=== PATIENT | female | born 1970 | race Caucasian/White ===

== ENCOUNTER → 2024-02-01 | Outpatient (CLI) | payer OTHER | LOC: M WHC 13:04 | PROVIDERS: ATTEND Registered Nurse | DX: Z12.31 Encounter for screening mammogram for malignant neoplasm of breast (principal); Z80.3 Family history of malignant neoplasm of breast; Z80.0 Family history of malignant neoplasm of digestive organs; Z80.49 Family history of malignant neoplasm of other genital organs ==

== ENCOUNTER → 2024-03-22 | Outpatient (CLI) | payer OTHER | LOC: M RAD 10:24 | PROVIDERS: ATTEND Registered Nurse | DX: M79.661 Pain in right lower leg (principal); M79.662 Pain in left lower leg ==

== ENCOUNTER 2024-04-30 06:49 | Day surgery (SDC) | payer OTHER ==
[~2024-04-30] VITALS: Ht 165.1 cm; Wt 104.7 kg
[~2024-04-30 06:49] MED LIST: AMIT10TA7 PO; HYDR-3490 PO; LOSA25TA13 PO; NS 1,000 ML IV ONE; OMEP-173 PO; SEMA0.5P
[2024-04-30] MEDS ORDERED: propofoL 200 MG/20 ML VIAL As Ordered ONE (07:53)
[2024-04-30 08:26] VITALS: TEMP 99
[2024-04-30 08:45] VITALS: BP 147/74; O2SAT 96
== END 2024-04-30 08:59 | disposition home or self-care (01) ==
LOC: M SDC 06:49
PROVIDERS: ATTEND Internal Medicine Gastroenterology
DX: D12.5 Benign neoplasm of sigmoid colon (principal); Z88.0 Allergy status to penicillin; Z88.1 Allergy status to other antibiotic agents

== ENCOUNTER → 2024-05-01 | Outpatient (REF) ==
[~2024-05-01] MED LIST changes: -NS 1,000 ML IV ONE
== END ==
LOC: M LAB 15:05
PROVIDERS: ATTEND Family Medicine
DX: Z00.00 Encounter for general adult medical examination without abnormal findings (principal)

== ENCOUNTER → 2024-06-07 | Outpatient (CLI) | payer OTHER | LOC: M RAD 14:16 | PROVIDERS: ATTEND Registered Nurse | DX: M79.662 Pain in left lower leg (principal) ==

== ENCOUNTER → 2025-02-11 | Outpatient (REF) | payer OTHER ==
[~2025-02-11] MED LIST changes: +AMIT10TA11 PO; -AMIT10TA7 PO
[2025-02-13 15:15] LABS: HPV APTIMA Not Detected (Not Detected)
== END ==
LOC: M SFHCWAGY 17:06
PROVIDERS: ATTEND Nurse Practitioner Family
DX: R87.615 Unsatisfactory cytologic smear of cervix (principal)
CPT/HCPCS: 87624; G0123

== ENCOUNTER → 2025-02-11 | Outpatient (CLI) | payer OTHER | LOC: M WHC 15:10 | PROVIDERS: ATTEND Nurse Practitioner Family | DX: Z12.31 Encounter for screening mammogram for malignant neoplasm of breast (principal); R92.313 Mammographic fatty tissue density, bilateral breasts ==

== ENCOUNTER → 2025-04-29 | Outpatient (REF) | payer OTHER | LOC: M SFHCWAGY 13:10 | PROVIDERS: ATTEND Nurse Practitioner Family | DX: Z12.4 Encounter for screening for malignant neoplasm of cervix (principal); R87.615 Unsatisfactory cytologic smear of cervix ==